=== PATIENT | female | born 1995 | race American Indian/Alaskan Native ===

== ENCOUNTER 2019-08-04 14:39 | Emergency (ER) | payer OTHER ==
[2019-08-04 14:49] VITALS: BP 144/85
--- NOTE | 2019-08-04 14:53 | Emergency Department Report ---
Chief Complaint: Upper Respiratory Infection Stated Complaint: FLU SX Time Seen by Provider: 08/04/19 14:46 - HPI History of Present Illness: This is a 24 y.o. F. that presents to the ER with cough, congestion, and rhinorrhea x 1 week. Patient states her cousin was diagnosed with RSV last week and not sure if she caught something from her. Patient denies any sore throat, drooling or hoarseness, fever, chills, headache, nausea, vomiting, chest pain or SOB. Denies any other complaints. - ROS Review of Systems: ROS: Stated complaint: cough, congestion, and rhinorrhea Other details as noted in HPI Constitutional: chills ENT: congestion. denies: ear pain, throat pain. Respiratory: cough. denies: shortness of breath, SOB with exertion, wheezing Cardiovascular: denies: palpitations, chest pain Gastrointestinal: denies: abdominal pain, nausea, diarrhea Musculoskeletal: denies: back pain, joint swelling, arthralgia Skin: denies: rash, lesions Neurological: denies: headache, weakness, paresthesias Psychiatric: denies: anxiety, depression - Exam Vital Signs: Vital Signs 08/04/19 14:48 Temperature 99.4 F Pulse Rate 108 H Respiratory 18 Rate Blood Pressure 144/85 O2 Sat by Pulse 96 Oximetry Physical Exam: General: Vital signs noted. No distress. Alert and acting appropriately. HEENT: Yes Moist Mucous Membranes, Yes Rhinorrhea (turbinates mildly congested with clear discharge), No pharynx Erythema (uvula midline), No Pharyngeal Exudates, No Conjuctival Injection, No Frontal Tenderness, No Maxillary Tenderness Ear: Neither TM Bulge, Neither TM Erythema, Neither EAC Pain, Neither EAC Discharge, Neither Cerumen Impaction Neck: Yes Supple, No Adenopathy Lungs: Yes Good Air Exchange, No Wheezes, No Ronchi, No Stridor, No Cough, No Labored Respirations, No Retractions, No Use of Accessory Muscles, No Other Abnormal Lung Sounds Heart: Yes Regular, No Murmur Abdomen: Yes Normal Bowel Sounds, No Tenderness, No Peritoneal Signs Skin: No Rash, No Eczema Neurologic: Alert and oriented, no deficits. MSE screening note: Focused history and physical exam performed. Due to findings the following was ordered: ED Medical Decision Making - Medical Decision Making This is a 24-year-old female that presents with URI symptoms x 1 week. Patient is nonfebrile and normal heart rate. Patient is stable and was examined by me. Due to patient having symptoms of upper respiratory infection and normal vital signs this is non-emergent. Patient was instructed to increase hydration, rest and take Motrin for aches. Vitals stable. Patient was instructed Follow-up with a primary care doctor in 3-5 days or if symptoms worsen and continue return to emergency room as soon as possible. At time time of discharge, the patient does not seem toxic or ill in appearance. No acute signs of distress noted. Patient agrees to discharge treatment plan of care. No further questions noted by the patient. ED Disposition for MSE Clinical Impression: Feared complaint without diagnosis Disposition: DC-01 TO HOME OR SELFCARE Is pt being admited?: No Condition: Stable Instructions: Upper Respiratory Infection (ED), Cold Symptoms (ED) Additional Instructions: Increase fluid intake. Wash hands daily. Take [id number] cold and flu medication for symptom relief. Follow-up with a primary care doctor in 3-5 days or if symptoms worsen and continue return to the emergency department as soon as possible. Referrals: AZRA HARMON MD [Staff Physician] - 3-5 Days [facility] [Outside] - 3-[address] [facility] [Outside] - 3-5 Days Forms: Work/School Release Form(ED) Time of Disposition: 15:19
== END 2019-08-04 15:00 | disposition home or self-care (01) ==
LOC: ED 14:39
DX: R05 Cough (principal); R09.81 Nasal congestion; J34.89 Other specified disorders of nose and nasal sinuses

== ENCOUNTER 2020-01-15 03:28 | Emergency (ER) | payer SELFPAY ==
[2020-01-15] MEDS ORDERED: dexAMETHasone 20 MG/5 ML VIAL IM ONE (06:07)
[2020-01-15] MEDS ORDERED: LIDOCAINE VISCOUS 2% 15 ML ORAL LIQD PO ONE (06:07)
[2020-01-15] MEDS ORDERED: CLINDAMYCIN 300 MG CAP PO ONE (06:07)
[2020-01-15] MEDS ORDERED: KETOROLAC 30 MG/1 ML INJ IM ONE (06:07)
[2020-01-15] MEDS ORDERED: ALUM-MAG HYDROXIDE-SIMETHICONE 200-200-20MG/5ML ORAL LIQD 30 ML PO ONE (06:07)
--- NOTE | 2020-01-15 06:12 | Emergency Department Report ---
ED ENT HPI - General Chief complaint: Sore Throat Stated complaint: SEVERE EAR AND THROAT PAIN Time Seen by Provider: 01/15/20 05:55 Source: patient Mode of arrival: Ambulatory Limitations: No Limitations - History of Present Illness Initial comments: Ms. Dutton is a 24-year-old -[place] female who presents for sore throat symptoms for 3 days pain is described as a 5/10 burning sharp exacerbated by swallowing. She denies fevers or chills . There experience URI symptoms prior to onset. Patient is tolerating p.o. hydration there is no abdominal pain, or nausea vomiting. She does endorse left ear pain for past 2 days. MD complaint: sore throat, ear pain Onset/Timin -: days(s) Location: L ear, throat Severity: moderate Severity scale (0 -10): 5 Quality: burning, sharp Consistency: constant Improves with: none Worsens with: swallowing, eating Associated Symptoms: pain with swallowing, sore throat. denies: fever, cough, gum swelling, toothache, tinnitus, discharge from ear, rhinorrhea - Related Data Previous Rx's Medication Instructions Recorded Last Taken Type Clindamycin [Clindamycin CAP] 300 mg PO Q8H #30 cap 01/15/20 Unknown Rx Famotidine [Pepcid] 20 mg PO BID #30 tablet 01/15/20 Unknown Rx Ibuprofen [Motrin 800 MG tab] 800 mg PO Q8HR PRN #30 tablet 01/15/20 Unknown Rx predniSONE [Deltasone] 40 mg PO DAILY 5 Days #10 tablet 01/15/20 Unknown Rx Allergies Allergy/AdvReac Type Severity Reaction Status Date / Time No Known Allergies Allergy Verified 08/04/19 14:43 ED Dental HPI - General Chief complaint: Sore Throat Stated complaint: SEVERE EAR AND THROAT PAIN Time Seen by Provider: 01/15/20 05:55 Source: patient Mode of arrival: Ambulatory Limitations: No Limitations - Related Data Previous Rx's Medication Instructions Recorded Last Taken Type Clindamycin [Clindamycin CAP] 300 mg PO Q8H #30 cap 01/15/20 Unknown Rx Famotidine [Pepcid] 20 mg PO BID #30 tablet 01/15/20 Unknown Rx Ibuprofen [Motrin 800 MG tab] 800 mg PO Q8HR PRN #30 tablet 01/15/20 Unknown Rx predniSONE [Deltasone] 40 mg PO DAILY 5 Days #10 tablet 01/15/20 Unknown Rx Allergies Allergy/AdvReac Type Severity Reaction Status Date / Time No Known Allergies Allergy Verified 08/04/19 14:43 ED Review of Systems ROS: Stated complaint: SEVERE EAR AND THROAT PAIN Other details as noted in HPI Constitutional: malaise. denies: chills, fever Eyes: denies: eye pain, eye discharge, vision change ENT: ear pain, throat pain Respiratory: denies: cough, shortness of breath, wheezing Cardiovascular: denies: chest pain, palpitations Endocrine: no symptoms reported Gastrointestinal: as per HPI. denies: abdominal pain, nausea, vomiting Genitourinary: as per HPI Musculoskeletal: denies: back pain, joint swelling, arthralgia Skin: denies: rash, lesions Neurological: denies: headache, weakness, paresthesias Psychiatric: denies: anxiety, depression Hematological/Lymphatic: denies: easy bleeding, easy bruising ED Past Medical Hx - Past Medical History Previous Medical History?: No - Surgical History Past Surgical History?: No - Social History Smoking Status: Never Smoker Substance Use Type: Alcohol - Medications Home Medications: Home Medications Medication Instructions Recorded Confirmed Last Taken Type Clindamycin [Clindamycin CAP] 300 mg PO Q8H #30 cap 01/15/20 Unknown Rx Famotidine [Pepcid] 20 mg PO BID #30 tablet 01/15/20 Unknown Rx Ibuprofen [Motrin 800 MG tab] 800 mg PO Q8HR PRN #30 tablet 01/15/20 Unknown Rx predniSONE [Deltasone] 40 mg PO DAILY 5 Days #10 tablet 01/15/20 Unknown Rx ED Physical Exam - General Limitations: No Limitations General appearance: alert, in no apparent distress - Head Head exam: Present: atraumatic, normocephalic - Eye Eye exam: Present: normal appearance, EOMI - ENT ENT exam: Present: mucous membranes moist, normal external ear exam - Expanded ENT Exam Expanded Ear exam: Present: normal external inspection TM/Canal exam: Erythema: Left TM Mouth exam: Absent: trismus Throat exam: Positive: tonsillar erythema, tonsillomegaly, tonsillar exudate, other (uvula midline no stridor no wheezing ). Negative: R peritonsillar mass, L peritonsillar mass - Neck Neck exam: Present: normal inspection, full ROM, lymphadenopathy. Absent: tenderness, meningismus, thyromegaly - Respiratory Respiratory exam: Present: normal lung sounds bilaterally. Absent: respiratory distress, wheezes, stridor, chest wall tenderness - Cardiovascular Cardiovascular Exam: Present: regular rate, normal rhythm, normal heart sounds. Absent: systolic murmur, diastolic murmur, rubs, gallop - GI/Abdominal GI/Abdominal exam: Present: soft, normal bowel sounds. Absent: distended, tenderness, bruit, hernia - Rectal Rectal exam: Present: deferred - Extremities Exam Extremities exam: Present: normal inspection - Back Exam Back exam: Present: normal inspection, full ROM. Absent: tenderness, CVA tenderness (R), CVA tenderness (L) - Neurological Exam Neurological exam: Present: alert, oriented X3, CN II-XII intact, normal gait - Psychiatric Psychiatric exam: Present: normal affect, normal mood - Skin Skin exam: Present: warm, dry, intact, normal color. Absent: rash ED Medical Decision Making - Medical Decision Making this is not a peritonsilar abscess, vital signs noted 151/90, P:94:T: 98.5, R;18, o2 SAT: 100% room air. plan: clindamycin, pepcid, prednisone, ibuprofen. follow up with pcp in 2-3 days . pt verbalized agreement and understanding of discharge plan. Critical care attestation.: If time is entered above; I have spent that time in minutes in the direct care of this critically ill patient, excluding procedure time. ED Disposition Clinical Impression: Pharyngitis Qualifiers: Pharyngitis/tonsillitis etiology: unspecified etiology Qualified Code(s): J02.9 - Acute pharyngitis, unspecified AOM (acute otitis media) Qualifiers: Otitis media type: serous Laterality: left Recurrence: non-recurrent Qualified Code(s): H65.02 - Acute serous otitis media, left ear Disposition: - TO HOME OR SELFCARE Is pt being admited?: No Does the pt Need Aspirin: No Condition: Stable Instructions: Pharyngitis (ED), Otitis Media (ED) Prescriptions: Clindamycin [Clindamycin CAP] 300 mg PO Q8H #30 cap predniSONE [Deltasone] 40 mg PO DAILY 5 Days #10 tablet Ibuprofen [Motrin 800 MG tab] 800 mg PO Q8HR PRN #30 tablet PRN Reason: pain Famotidine [Pepcid] 20 mg PO BID #30 tablet Referrals: RC MITCHELL DO [Staff Physician] - 3-5 Days Forms: Work/School Release Form(ED) Time of Disposition: 06:20
[2020-01-15 06:53] VITALS: BP 132/84
== END 2020-01-15 06:31 | disposition home or self-care (01) ==
LOC: ED 03:28
DX: J02.9 Acute pharyngitis, unspecified (principal); H66.92 Otitis media, unspecified, left ear; Z79.899 Other long term (current) drug therapy
CPT/HCPCS: 87116; 87430; 96372; 99283; J1100; J1885